=== PATIENT | female | born 1990 | race Caucasian/White ===

== ENCOUNTER 2024-04-11 12:37 | Emergency (ER) | payer MEDICAID, SELFPAY ==
--- NOTE | ~2024-04-11 | CT_ITS ---
EXAMINATION: CT brain wo con DATE: 04/11/2024 13:57 INDICATION: Fall. Seizure. TECHNIQUE: Computed tomography (CT) of the head was performed without intravenous contrast. The mA wa s adjusted according to patient size. Iterative reconstruction technique was employed. The dose-lengt h product was 605.33 mGy-cm. COMPARISON: None FINDINGS: There is no intracranial hemorrhage, acute infarction, or abnormal intracranial mass lesion . The ventricles are normal in size. The orbits are normal. There is mild mucosal thickening in the p aranasal sinuses. The mastoid air cells are normal. IMPRESSION: 1. Normal brain. Reviewed, dictated and finalized at location A. ING UP MACHINE OPERATOR IMPRESSION: 1. Normal brain.
--- NOTE | ~2024-04-11 | XR_ITS ---
EXAMINATION: XR chest 1V DATE: 04/11/2024 13:58 INDICATION: Fall. TECHNIQUE: A single frontal view of the chest was obtained. COMPARISON: None. FINDINGS: There is no pneumonia, pleural effusion, or pneumothorax. The heart size is normal. IMPRESSION: 1. No acute cardiopulmonary disease. Reviewed, dictated and finalized at location A. ISITION LEAD
[2024-04-11 12:56] VITALS: BP 109/67; PULSE 88; RESP 16; TEMP 36.6; O2SAT 100
--- OUTSIDE RECORDS SUMMARY | 2024-04-11 13:04 | XMS_ITS | Continuity of Care Document ---
Author Organization [facility] Address [address] [place] [address] Phone Care Team Providers Care Press Tender Name Role Phone PINA AMIN MD Unavailable Unavailable Allergies, Adverse Reactions, Alerts Substance Reaction Status Criticality aspirin Active No Information Medications Medication Instructions Dosage Effective Dates (start - stop) Status Comments omeprazole 20 mg tablet,delayed release - Active ProAir HFA 90 mcg/actuation aerosol inhaler - Active Flovent HFA 44 mcg/actuation aerosol inhaler - Active sertraline 50 mg tablet - Ac tive Procedures Procedure Date OFFICE/OUTPATIENT VISIT, NEW Advance Directives Directive Yes / No Effective Date File Name No Information Encounters Encounter Description Practice Location Reason(s) For Visit Diagnoses Date Provider Providers Copied on Encounter OFFICE/OUTPA TIENT VISIT, NEW [facility], [address] [place] [address], [address] [place] [address], tel:[phone] [facility] right knee pain (chief complaint) Chondromalaci a patellae, right knee 1 [facility] [facility]. [address] [place], [place], [id number], [place]. tel:[phone] Referring Provider: PINA AMIN MD, [address] [place] [address], [id number]. tel:[phone] Family History Family Member Type Diagnosis Age At Onset Problem (finding) Family history of disor quang of lung Payers Payer name Insurance type Covered democrat ID Authoriza tion(s) No Information Social History Type Description Quantity Date Captured Comments Alcohol Use Details Unknown Caffeine Use Details Unknown Tobacco Use Status Current non-smoker Smoking Status Never smoker Non-Smoking Tobacco Use Details : No Details Available : No Details Available Sex Female Chief Complaint And Reason For Visit From encounter dated '05/24/2020 14:35'. right knee pain (chief complaint). Description: Ms OLEARY is a 29 year old female who complains ofright knee pain. She presents with pain and swelling on the right side. The symptoms occur constantly. The problem is worse. Currently the patient states that the symptoms are moderate-severe. The pain is described as discomforting, sharp, shooting and stabbing. The symptoms are aggravated by dailyactivities. BARI states that the symptoms are relieved by no specific activity. In addition to right knee pain the patient is also experiencing grinding. The patient has had a previous x-ray. Reason For Referral Reason For Referral No Information History Of Present Illness Encounter Date Complaint History Of Prese nt Illness right knee pain Ms OLEARY is a 29 year old female who complains of right knee pain. She presents with pain and swelling on the right side. The symptoms occur constantly. The problem is worse. Currently the patient states that the symptoms are moderate-severe. The pain is described as discomforting, sharp, shooting and stabbing. The symptoms are aggravated by daily activities. BARI states that the symptoms are relieved by no specific activity. In addition to right knee pain the patient is also experiencing grinding. The patient has had a previous x-ray. Functional Status Date Functional Assessmen t No Information Instructions Date Instruction Additional Infor mation No Information Assessments Type Assessment Date assessment Chondromalacia patellae, right k nee impression Looks like a patella r problem. But tracking is okay in try Cortizone injection today and see if we get her approved for a gel 1 injection. Therapy and medications have been ineffective Mental Status Date Cognitive Assessment Orientation - Hume ed to time, place, person, situation. Patient Care Teams Name Effective Dates (start - stop) Status Members No Information
--- NOTE | 2024-04-11 13:15 | ECG_ITS ---
Test Date: 2024-04-11 13:35:02 Measurements Intervals [place] Rate: 72 P: 53 MA: 171 QRS: 27 QRSD: 78 T: 20 QT: 370 QTc: 407 Interpretive Statements SINUS RHYTHM NORMAL ECG No previous ECG available for comparison Electronically Signed On 04-11-2024 13:43:12 [employer] by Azael Mattson D.O.
[2024-04-11] MEDS: SODIUM CHLORIDE 0.9% IV 1,000 ML 999 ML IV CONT ×2 (13:28→15:48)
[2024-04-11 13:31] LABS: BEDSIDEPREGUCG Negative (Negative)
[2024-04-11 13:36] LABS: Basophils Absolute Auto 0.1 K/mm3 (0.0-0.1); Eosinophils Absolute Auto 0.2 K/mm3 (0-0.3); Eosinophils Percent Auto 2.4 % (0-4.4); Hematocrit 38.2 % (37.0-47.0); Hemoglobin 11.9 g/dL (12.0-15.0); Immature Granulocyte Absolute 0.02 K/mm3 (0.00-0.031); Immature Granulocyte Percent A 0.2 % (0-0.5); Lymphocytes Absolute Auto 3.88 K/mm3 (0.9-3.2); Lymphocytes Percent Auto 42.9 % (18.3-44.2); Mean Corpuscular HGB Conc 31.2 g/dl (32-36); Mean Corpuscular Hemoglobin 26.2 pg (26-34); Mean Platelet Volume 9.7 fl (7.4-10.4); Monocytes Absolute Auto 0.6 K/mm3 (0.1-0.6); Monocytes Percent Auto 6.2 % (2.6-8.5); Neutrophils Absolute Auto 4.3 K/mm3 (1.3-6.7); Neutrophils Percent Auto 47.3 % (45.5-73.1); Platelet Count Result 338 k/mm3 (150-375); Red Blood Count 4.55 M/mm3 (4.2-5.4)
--- NOTE | 2024-04-11 13:39 | ED_ITS ---
HPI - Seizure General Chief Complaint: Seizure Stated Complaint: seizures Time Seen by Provider: 04/11/24 12:42 History of Present Illness HPI Narrative: 33-year-old female with a past medical history including prior nonepileptic seizures. Patient presents to the emergency department with her family and at bedside. She called EMS today. Family is concerned that patient has been exhibiting potential seizure activity on and off for last day. Patient did potentially fall and hit her head in the bathtub yesterday. Patient states that she is not exactly sure was been happening and describes feeling brain fog. Family states that they witnessed her staring off this patient occasionally with ?shaking ?over both of her arms without any tonic or clonic appearing activity. They appear to be tremors based on the description by the family. These last for several seconds and then patient seems confused afterwards but is awake and answering questions. Patient is awake during these events for description of family. No seizure activity was witnessed by EMS or upon arrival to the emergency department. Patient is answering all questions appropriately and alert oriented x4. Family states that they have moved several times are new to the area. Most recently were at visit or a with a were evaluated several weeks ago for something similar. Discharge without any antiepileptic medications and did not have any kind of follow-up with Neurology. Patient herself states that she has major depressive disorder, genetic in generalized anxiety disorder, chronic lumbar back pain. She takes antidepressive medications, denies any drinking or other ingestions. Denies any substance abuse or any overdose ingestion. No homicidal or suicidal ideation. Related Data Allergies Allergy/AdvReac Type Severity Reaction Status Date / Time aspirin Allergy Intermediate Itching Verified 04/11/24 13:09 Review of Systems 2 Review of Systems: As reviewed above in HPI Exam 2 Narrative: GENERAL: [Well-appearing, well-nourished, and in no acute distress.] HEAD: [Normocephalic, atraumatic.] EYES: [PERRLA and EOMI.] ENT: Nares clear, no rhinorrhea or epistaxis. Mucous membranes moist. NECK: Supple. CHEST: [Clear to auscultation. No respiratory distress.] HEART: [Regular rate and rhythm]. No murmur heard. [Normal peripheral pulses.] ABDOMEN: [Soft, nondistended], [nontender], [No rigidity or guarding] EXTREMITIES: Normal range of motion. [No edema.] SKIN: Warm, dry, no rash. NEURO: [No focal deficits]. Alert and oriented [x3.] Some leftward beating nystagmus is noted but no vertical nystagmus. Normal strength throughout both arms and legs, normal sensation throughout both arms and legs, no facial asymmetry or droop. No tongue fasciculations. Extraocular movements are intact. No ataxia in the arms or legs. PSYCH: [Normal mood and affect.] Course Vital Signs Vital signs: Vital Signs Temperature 36.6 C 04/11/24 12:56 Pulse Rate 88 04/11/24 12:56 Respiratory Rate 16 04/11/24 12:56 Blood Pressure 109/67 04/11/24 12:56 Pulse Oximetry 100 04/11/24 12:56 Temperature 36.6 C 04/11/24 12:56 Pulse Rate 61 04/11/24 15:52 Respiratory Rate 16 04/11/24 15:52 Blood Pressure 115/69 04/11/24 15:52 Pulse Oximetry 100 04/11/24 15:52 Oxygen Delivery Room Air 04/11/24 13:09 MDM - Seizure MDM Narrative Medical decision making narrative: 33-year-old otherwise healthy appearing female presenting to the emergency department after potential multiple seizure events at home. Patient has a history of what seems to be nonepileptic seizure activity as well as generalized anxiety disorder and major depressive disorder for which she is on antidepressants. No recent changes to the medications. Patient has never been on any kind of antiepileptic medications and has not been seen by Neurology in the past. They state they have been seen previously for something similar and discharged after unremarkable workup. Family describes shaking which seems to be tremors of the both hands followed by staring off the space episodes they were very short-lived. Patient says she feels confused but is awake alert oriented answers all questions appropriately. She tells me that she potentially fell yesterday which could be triggering this. Denies any blood thinner use. No evidence of trauma externally. She has normal vital signs without any tachycardia, fever, hypoxia blood pressure concerns. She has an unremarkable neurovascular assessment. Normal NIH of 0. Suspicion presently is for potential nonepileptic seizure activity, anxiety, electrolyte disturbances, less likely epileptic activity or true seizure activity, less likely intracranial pathology such as an injury or brain bleed. Will draw lactic acid to evaluate for any elevations from potential seizure activity as well as CPK, CBC, CMP, chest x-ray, EKG, head CT, drug panel, toxic panel. She will be provided normal saline bolus and placed on property assessment monitor and pulse oximetry. Seizure precaution pads were placed on her bed rail. She was monitored for numerous hours without any return or occurrence of the reported concerns. Workup showed no leukocytosis or significant anemia. Normal platelet count. Coagulation panel within normal limits. Electrolytes all unremarkable. Normal hepatic function, normal renal function, normal glucose, negative lactic acid despite the supposed recurrent shaking activity. Normal TSH. Normal CPK. Urinalysis without any bacteria or any convincing evidence of infection. Negative test. Toxicological screenings are all negative. Head CT unremarkable. Chest x-ray without any findings. EKG shows normal sinus rhythm, no signs of ischemia or ectopy. Patient was treated with a migraine headache cocktail including Compazine, diphenhydramine, Decadron Toradol. She had improvement her headache. She was observed here for 5 hours without any recurrence of the shaking or reported seizure-like activity. At this time given her very unremarkable workup, normal stable vital signs, no witnessed evidence of seizures I believe she can be safely discharged home with regular outpatient follow-up including a neurology referral if this is recurrent issue. Patient and family understood and agreeable to plan of care. They were safely discharged home at this time with return precautions. Medical Records Attestation: I reviewed the patient's medical records. Lab Data Attestation: I reviewed the patient's lab results. 04/11/24 13:26 04/11/24 13:26 Labs: Lab Results 04/11/24 04/11/24 04/11/24 Range/Units 13:17 13:26 13:29 WBC 9.0 (4.5-10.0) K/mm3 RBC 4.55 (4.2-5.4) M/mm3 Hgb 11.9 L (12.0-15.0) g/dL Hct 38.2 (37.0-47.0) % MCV 84.0 (80-100) fl MCH 26.2 (26-34) pg MCHC 31.2 L (32-36) g/dl RDW 16.0 H (11.5-14.5) % Plt Count 338 (150-375) k/mm3 MPV 9.7 (7.4-10.4) fl Immature Gran % (Auto) 0.2 (0-0.5) % Neut % (Auto) 47.3 (45.5-73.1) % Lymph % (Auto) 42.9 (18.3-44.2) % [place] % (Auto) 6.2 (2.6-8.5) % Eos % (Auto) 2.4 (0-4.4) % Baso % (Auto) 1.0 (0.2-1.2) % Lymph # (Auto) 3.88 H (0.9-3.2) K/mm3 [place] # (Auto) 0.6 (0.1-0.6) K/mm3 Eos # (Auto) 0.2 (0-0.3) K/mm3 Baso # (Auto) 0.1 (0.0-0.1) K/mm3 Abs Immat Gran (auto) 0.02 (0.00-0.031) K/mm3 Absolute Neuts (auto) 4.3 (1.3-6.7) K/mm3 Absolute Nucleated RBC 0.000 (0.0-0.012) K/mm3 Nucleated RBC % 0.0 (0.0-0.2) % PT 13.6 (11.1-14.7) Seconds INR 1.0 APTT 24.0 (22.3-36.8) Seconds Sodium 140 (137-145) mmol/L Potassium 3.8 (3.4-5.0) mmol/L Chloride 107 (98-107) mmol/L Carbon Dioxide 23 (22-30) mmol/L Anion Gap 10 (4-12) mmol/L BUN 13 (7-17) mg/dL Creatinine 0.84 (0.7-1.0) mg/dL Estim Creat Clear Calc 88 ml/min Estimated GFR > 60 (59 - ) Glucose 99 (65-110) mg/dL Lactic Acid 1.7 (0.7-2.0) mmol/L Calcium 9.1 (8.4-10.2) mg/dL Total Bilirubin 1.1 (0.2-1.3) mg/dL AST 18 (14-36) U/L ALT 16 (6-35) U/L Alkaline Phosphatase 66 (38-126) U/L Total Creatine Kinase 45 (30-135) U/L Total Protein 7.0 (6.3-8.2) g/dL Albumin 3.9 (3.5-5.1) g/dL TSH 1.030 (0.465-4.680) uIU/mL Urine Color Yellow (Yellow) Urine Appearance Clear (Clear) Urine pH 5.5 (5.0-9.0) Ur Specific [place] 1.013 (1.001-1.035) Urine Protein Negative (Negative) mg/dL Urine Glucose (UA) Negative (Negative) mg/dL Urine Ketones Negative (Negative) mg/dL Ur Blood (Man) Trace (Negative) Urine Nitrate Negative (Negative) Urine Bilirubin Negative (Negative) Urine Urobilinogen 0.2 (<2.0) mg/dL Leukocyte Esterase Rfl 1+ H (Negative) COMPA/UL Urine RBC 0-2 (0-2) /hpf Urine WBC 11-20 H (0-3) /hpf Ur Squamous Epith Cells Few (Few) /hpf Urine Bacteria None seen /hpf Urine Casts 0-2 POC Urine HCG, Qual Negative (Negative) Salicylates < 1.0 L (2-20) mg/dL Urine Opiates Screen Negative (Negative) Urine Methadone Screen Negative (Negative) Acetaminophen < 10 L (10-30) ug/mL Ur Barbiturates Screen Negative (Negative) Ur Phencyclidine Scrn Negative (Negative) Ur Amphetamine Screen Negative (Negative) U Benzodiazepines Scrn Negative (Negative) Urine Cocaine Screen Negative (Negative) U Cannabinoids Screen Negative (Negative) Ethyl Alcohol < 10 (<10) mg/dL Imaging Data Attestation: I personally reviewed and interpreted this imaging study as follows: My impression: Impressions Head CT 04/11/24 14:00 IMPRESSION: 1. Normal brain. Chest X-Ray 04/11/24 14:01 IMPRESSION: 1. No acute cardiopulmonary disease. Discharge Plan Discharge Clinical Impression: Witnessed seizure-like activity, Nonepileptic episode Patient Disposition: Home, Self-Care Condition: Stable Instructions: Antibiotic Form, Nonepileptic Seizures (ED), Tremors (ED) Additional Instructions: Your workup appears reassuring, no evidence of any seizure activity while in the department, normal head CT, normal labs. We will recommend you follow-up with Neurology outside the hospital. Return with any new or worsening concerns at any time. Patient Language: [place] Follow-up/Referrals: Lebron Muniz MD [Physician] - 1 Week (Seizure-like activity) PHYSICIAN,TIE IN HAND [Primary Care Provider] - Time of Disposition: 17:33
[2024-04-11 13:43] LABS: Add Urine Microscopic? YES; Appearance Urine Clear (Clear); Bacteria Urine None Seen /hpf; Bilirubin Urine Negative (Negative); Blood Urine Trace (Negative); Color Urine Yellow (Yellow); Glucose Urine UA Negative (Negative); Ketones Urine Negative (Negative); Leukocyte Esterase Ur 1+ LEU/UL (Negative); Nitrate Urine Negative (Negative); Non Pathogenic Casts 0-2; Protein Urine Negative (Negative); RBC Urine 0-2 /hpf (0-2); Specific Grav Ur 1.013 (1.001-1.035); Squamous Epithelial Cell Urine Few /hpf (Few); Urobilinogen Urine 0.2 mg/dL (<2.0); pH Urine 5.5 (5.0-9.0)
[2024-04-11 13:44] LABS: Lactic Acid Reflex 1.7 mmol/L (0.7-2.0)
[2024-04-11 13:45] LABS: Alanine Aminotransferase 16 U/L (6-35); Albumin Level 3.9 g/dL (3.5-5.1); Alkaline Phosphatase 66 U/L (38-126); Anion Gap 10 mmol/L (4-12); Aspartate Amino Transferase 18 U/L (14-36); Bilirubin,Total 1.1 mg/dL (0.2-1.3); Blood Urea Nitrogen 13 mg/dL (7-17); Calcium 9.1 mg/dL (8.4-10.2); Carbon Dioxide 23 mmol/L (22-30); Chloride 107 mmol/L (98-107); Creatine Kinase 45 U/L (30-135); Estimated CRCL calculation 88 ml/min; Estimated Glomerular Filt Rate > 60; Glucose 99 mg/dL (65-110); Potassium 3.8 mmol/L (3.4-5.0); Sodium 140 mmol/L (137-145)
[2024-04-11 13:47] LABS: Prothrombin Time 13.6 Seconds (11.1-14.7)
[2024-04-11 13:54] LABS: Acetaminophen < 10 ug/mL (10-30); Ethanol < 10 mg/dL (<10); Salicylate < 1.0 mg/dL (2-20)
[2024-04-11 14:11] LABS: Amphetamine Screen Urine Negative (Negative); Barbiturate Screen Urine Negative (Negative); Benzodiazepines Screen Urine Negative (Negative); Cannabinoid Screen Urine Negative (Negative); Cocaine Screen Urine Negative (Negative); Methadone Screen Urine Negative (Negative); Opiate Screen Urine Negative (Negative); Phencyclidine Screen Urine Negative (Negative)
[2024-04-11 14:44] VITALS: BP 109/70; PULSE 64; RESP 16; O2SAT 98
--- NOTE | 2024-04-11 15:46 | PC.NURSE ---
Pt. c/o 11/[address] Elmore notified. See MAR for interventions. Pt. states she is allergic to aspirin but okay taking ibuprofen. Dr. Elmore notified. Per , ok to administer Toradoll.
[2024-04-11] MEDS: KETOROLAC 15 MG/ML VIAL (*BKC) IV PUSH (15:47)
[2024-04-11] MEDS: dexAMETHasone SOD PHOS INJ 10 MG/ML 1 ML VIAL IV PUSH (15:48)
[2024-04-11] MEDS: PROCHLORPERAZINE EDISYLATE 10 MG/2 ML VIAL IV PUSH (15:51)
[2024-04-11 15:52] VITALS: BP 115/69; PULSE 61; RESP 16; O2SAT 100
[2024-04-11] MEDS: diphenhydrAMINE HCl INJ 50 MG/ML VIAL 25 MG IV PUSH (15:52)
--- NOTE | 2024-04-11 16:46 | PC.NURSE ---
Pt. woken up to reassess. She reports 9/10 pain immediately upon waking up. Pt. asking how much longer. Dr. Elmore notified.
[2024-04-11 17:48] VITALS: BP 109/64; PULSE 85; RESP 16; O2SAT 97
== END 2024-04-11 17:52 | disposition home or self-care (01) ==
PROVIDERS: Emergency Provider Student in an Organized Health Care Education/Training Program
DX: R56.9 Unspecified convulsions (principal); F41.1 Generalized anxiety disorder; F32.9 Major depressive disorder, single episode, unspecified; Z79.899 Other long term (current) drug therapy
CPT/HCPCS: 36415; 70450; 71045; 80053; 80143; 80179; 80307; 81001; 81025; 82077; 82550; 83605; 84443; 85025; 85610; 85730; 87086; 93005; 96361; 96374; 96375; 99284; J0780; J1100; J1200; J1885; J7030